=== PATIENT | female | born 1980 | race Caucasian/White ===

== ENCOUNTER 2025-06-30 23:58 | Emergency (ER) | payer OTHER ==
[~2025-06-30] VITALS: Ht 175.3 cm; Wt 63.5 kg
[2025-07-01 01:11] VITALS: BP 130/81; TEMP 98; O2SAT 99
== END 2025-07-01 01:12 | disposition home or self-care (01) ==
LOC: ER 07-01 00:03
DX: I10 Essential (primary) hypertension (principal); T44.995A Adverse effect of other drug primarily affecting the autonomic nervous system, initial encounter; Y92.89 Other specified places as the place of occurrence of the external cause